=== PATIENT | male | born 1980 | race Caucasian/White ===

== ENCOUNTER 2017-05-11 10:25 | Emergency (ER) | payer BC, MEDICAID ==
--- NOTE | 2017-05-11 12:20 | EDM.PDOC ---
ED HPI GENERAL MEDICAL PROBLEM - General Chief Complaint: General Stated Complaint: [id number] PAIN HERNIA Time Seen by Provider: 05/11/17 11:50 Source of Information: Reports: Patient History Limitations: Reports: No Limitations - History of Present Illness INITIAL COMMENTS - FREE TEXT/NARRATIVE: This 36 yo male patient reports to the ED with pain in his lower abdomen, lower back, and testicles. The patient reports his symptoms started 7 months ago, but has gotten much worse over the past week. The patient reports he has increased pain in his testicles after lifting and moving things. The patient reports he has noticed some swelling in his right groin. The patient was seen for lower back pain 1 week ago, but the patient has continued to have increased pain. Onset: Gradual Duration: Week(s):, Constant, Getting Worse Location: Reports: Abdomen, Other (right groin) Quality: Reports: Ache, Sharp Severity: Moderate Improves with: Reports: None Worsens with: Reports: None Associated Symptoms: Reports: No Other Symptoms Groin Pain Score (Numeric/FACES): 8 - Related Data Allergies Allergy/AdvReac Type Severity Reaction Status Date / Time No Known Allergies Allergy Verified 05/11/17 10:36 Home Meds: Home Meds Albuterol [Ventolin HFA] 18 gm INH Q2H 05/31/15 [History] Montelukast [Singulair] 10 mg PO BEDTIME 05/31/15 [History] Past Medical History - Past Health History Medical/Surgical History: Denies Medical/Surgical History Respiratory History: Reports: Asthma Social & Family History - Family History Family Medical History: Noncontributory - Tobacco Use Smoking Status *Q: Current Every Day Smoker Years of Tobacco use: 20 Packs/Tins Daily: 1 - Caffeine Use Caffeine Use: Reports: Coffee - Recreational Drug Use Recreational Drug Use: No ED ROS GENERAL - Review of Systems Review Of Systems: ROS reveals no pertinent complaints other than HPI. ED EXAM, GENERAL - Physical Exam Exam: See Below Exam Limited By: No Limitations General Appearance: Alert, WD/WN, Moderate Distress Eye Exam: Bilateral Eye: EOMI, Normal Inspection, PERRL Ears: Normal External Exam, Normal Canal, Hearing Grossly Normal, Normal TMs Nose: Normal Inspection, Normal Mucosa, No Blood Throat/Mouth: Normal Inspection, Normal Lips, Normal Teeth, Normal Gums, Normal Oropharynx, Normal Voice, No Airway Compromise Head: Atraumatic, Normocephalic Neck: Normal Inspection, Supple, Non-Tender, Full Range of Motion Respiratory/Chest: No Respiratory Distress, Lungs Clear, Normal Breath Sounds, No Accessory Muscle Use, Chest Non-Tender Cardiovascular: Normal Peripheral Pulses, Regular Rate, Rhythm, No Edema, No Gallop, No JVD, No Murmur, No Rub GI/Abdominal: Normal Bowel Sounds, Soft, Tender (lower abdomen) (Male) Exam: Hernia (right inguinal (self reducing)) Rectal (Males) Exam: Deferred Back Exam: Normal Inspection, Full Range of Motion, NT Extremities: Normal Inspection, Normal Range of Motion, Non-Tender, Normal Capillary Refill, No Pedal Edema Neurological: Alert, Oriented, CN II-XII Intact, Normal Cognition, Normal Gait, Normal Reflexes, No Motor/Sensory Deficits Psychiatric: Normal Affect, Normal Mood Skin Exam: Warm, Dry, Intact, Normal Color, No Rash Lymphatic: No Adenopathy Course - Vital Signs Last Recorded V/S: Last Vital Signs Temp 36.8 C 05/11/17 10:37 Pulse 94 05/11/17 10:37 Resp 16 05/11/17 10:37 BP 124/96 H 05/11/17 10:37 Pulse Ox 98 05/11/17 10:37 - Re-Assessments/Exams Free Text/Narrative Re-Assessment/Exam: 05/11/17 12:25 Since the patient visited Dr. Flowers 1 week ago, a call was placed to Dr. Flowers to relate assessment findings. Dr. Flowers advised to have the patient establish an appointment in the clinic to arrange for continued evaluation and management. Departure - Departure Time of Disposition: 12:26 Disposition: Home, Self-Care 01 Condition: Fair Clinical Impression: Right inguinal hernia - Discharge Information Instructions: Inguinal Hernia, Adult, [id number] Forms: ED Department Discharge Care Plan Goals: The patient was advised of the examination results during the visit. The patient was encouraged to avoid heavy lifting until follow-up with his primary care facility. The patient may use a cold compress to the right groin for temporary symptom relief. The patient may also take Tylenol for pain. If the patient has any additional symptoms or concerns, the patient should either visit his primary care facility or return to the emergency department.
== END 2017-05-11 12:39 | disposition home or self-care (01) ==
LOC: DL.ED 10:25
CPT/HCPCS: 99283